=== PATIENT | female | born 2000 | race Caucasian/White ===

== ENCOUNTER 2023-01-26 00:11 | Emergency (ER) | payer SELFPAY ==
[~2023-01-26] VITALS: Ht 165.1 cm; Wt 61.0 kg
[2023-01-26 00:28] VITALS: BP 106/66
== END 2023-01-26 08:38 | disposition left against medical advice (07) ==
LOC: ER 00:11
DX: F10.129 Alcohol abuse with intoxication, unspecified (principal); Y90.0 Blood alcohol level of less than 20 mg/100 ml; Z53.21 Procedure and treatment not carried out due to patient leaving prior to being seen by health care provider
CPT/HCPCS: 99281